=== PATIENT | female | born 1955 | race Caucasian/White ===

== ENCOUNTER → 2017-01-04 | Outpatient (CLI) | payer BC | LOC: KOH-I 12:50 | DX: R05 Cough (principal); F17.200 Nicotine dependence, unspecified, uncomplicated | CPT/HCPCS: 71020 ==

== ENCOUNTER → 2017-01-04 | Outpatient (CLI) | payer BC ==
[2017-01-04 14:39] LABS: HEMOGLOBIN 13.6 gm/dl (12.3-15.3); RED BLOOD COUNT 4.58 M/UL (4.00-5.10); WHITE BLOOD COUNT 12.1 K/UL (4.5-11.0)
[2017-01-04 15:07] LABS: BUN/CREATININE RATIO 30 (0-10)
== END ==
LOC: LAB 13:53
PROVIDERS: Nurse Practitioner
DX: J44.9 Chronic obstructive pulmonary disease, unspecified (principal); R53.83 Other fatigue; R05 Cough; F17.210 Nicotine dependence, cigarettes, uncomplicated
CPT/HCPCS: 80053; 80061; 84436; 84443; 84480; 85025; 86140

== ENCOUNTER → 2017-01-09 | Outpatient (CLI) | payer BC | LOC: LAB 13:21 | DX: M19.90 Unspecified osteoarthritis, unspecified site (principal) | CPT/HCPCS: 36415; 86039; 86140; 86431 ==

== ENCOUNTER → 2022-03-31 | Outpatient (CLI) | payer MEDICARE, OTHER | LOC: US 14:05 → MAMO 15:00 | DX: Z12.31 Encounter for screening mammogram for malignant neoplasm of breast (principal); R22.1 Localized swelling, mass and lump, neck | CPT/HCPCS: 76536; 77063; 77067 ==